=== PATIENT | male | born 1965 | race Caucasian/White ===

== ENCOUNTER 2021-09-21 09:22 | Day surgery (SDC) | payer OTHER ==
[2021-09-20 09:12] VITALS: BMI 28.1
[~2021-09-21 09:22] MED LIST: LACTATED RINGERS 1,000 ML IV SCH
[2021-09-21 09:58] VITALS: RESP 16; TEMP 96.4
[2021-09-21] MEDS ORDERED: MIDAZOLAM 2 MG/2 ML VIAL ONE (11:00)
[2021-09-21] MEDS ORDERED: PROPOFOL 10 MG/ML 20 ML VIAL IV ONE (11:00)
[2021-09-21] MEDS ORDERED: LIDOCAINE 1% INJ 10MG/ML (20 ML MDV) ONE (11:00)
--- NOTE | 2021-09-21 11:57 | P.PCN ---
Date of Procedure: 09/21/21 Procedure(s) Performed: BRIEF HISTORY: Patient is a []-year-old pleasant [] scheduled for an elective colonoscopy as a part of screening for colorectal neoplasia PROCEDURE PERFORMED: Colonoscopy. PREOPERATIVE DIAGNOSIS: Screening for colon cancer.. IV sedation per Anesthesia. PROCEDURE: After informed consent was obtained, the patient, was brought into the endoscopy unit. IV sedation was administered by Anesthesia under continuous monitoring. Digital rectal examination was normal. Initially the Olympus CF-160 flexible video colonoscope was then inserted in the rectum, gradually advanced into the cecum without any difficulty. Careful examination was performed as the scope was gradually being withdrawn. Ileocecal valve and the appendiceal orifice were visualized and appeared normal. Prep was excellent. Mucosa of the cecum, ascending colon, transverse colon, appeared normal. In the descending colon there was a 3.5-4 cm polyp with a thick stalk located at 50 cm from the anal verge there was removed by snare polypectomy in a piecemeal fashion. Following polypectomy was some oozing identified. 3 endoclips were placed and hemostasis was achieved. Tattooing was performed with Funmi ink. In the distal sigmoid colon at 25 cm from the anal verge there was a 3 cm with pedunculated polyp that was removed by snare polypectomy. In the distal rectum there was a 5 mm polyp that was removed by snare polypectomy. Rest of the sigmoid colon, and rectum appeared normal. Retroflexion was performed in the rectum and all internal hemorrhoids were seen. The patient tolerated the procedure well. IMPRESSION: 3.5-4 cm polyp with a thick stalk with the polyp extending to the base of the stalk located in the descending colon at 50 cm from the anal verge, status post piecemeal snare polypectomy followed by Endo Clip placement 3 cm pedunculated distal sigmoid colon polyp at 25 cm from the anal verge status post snare polypectomy 5 mm rectal polyp status post polypectomy Small internal hemorrhoid RECOMMENDATIONS: Findings of this examination were discussed with the patient as well as his family. He was advised to follow with the biopsy results. He'll be seen in office in 1 week to discuss the biopsy results..
[2021-09-21 12:20] VITALS: BP 157/92; PULSE 79
== END 2021-09-21 12:35 | disposition home or self-care (01) ==
LOC: ORWHC2ENDO 09:22
PROVIDERS: ATTEND Internal Medicine Gastroenterology
DX: Z12.11 Encounter for screening for malignant neoplasm of colon (principal); D12.4 Benign neoplasm of descending colon; C20 Malignant neoplasm of rectum; K62.1 Rectal polyp; I10 Essential (primary) hypertension; E78.5 Hyperlipidemia, unspecified; F17.200 Nicotine dependence, unspecified, uncomplicated; E07.9 Disorder of thyroid, unspecified; Z86.73 Personal history of transient ischemic attack (TIA), and cerebral infarction without residual deficits; Z98.890 Other specified postprocedural states; Z87.19 Personal history of other diseases of the digestive system; Z79.890 Hormone replacement therapy; Z79.899 Other long term (current) drug therapy; Z88.5 Allergy status to narcotic agent
CPT/HCPCS: 88305; 45385; 45381; J2250; J2001; J2704; 45382

== ENCOUNTER 2022-01-11 11:06 | Day surgery (SDC) | payer OTHER ==
[2022-01-11 11:54] VITALS: RESP 16; TEMP 97.2
[2022-01-11] MEDS ORDERED: LIDOCAINE 1% INJ 10MG/ML (20 ML MDV) ONE (14:00)
[2022-01-11] MEDS ORDERED: PROPOFOL 10 MG/ML 20 ML VIAL IV ONE (14:00)
--- NOTE | 2022-01-11 14:09 | P.PCN ---
Date of Procedure: 01/11/22 Procedure(s) Performed: BRIEF HISTORY: Patient is a 56-year-old, pleasant, white male scheduled for an upper endoscopy as a part of evaluation of severe epigastric pain for the last few months duration. . His been taking NSAIDs in regular basis. No prior history of peptic ulcer disease. PROCEDURE PERFORMED: Esophagogastroduodenoscopy with biopsy PREOPERATIVE DIAGNOSIS: Chronic epigastric pain of 3 months. IV sedation per anesthesia. PROCEDURE: After informed consent was obtained, the patient was brought into the endoscopy unit. IV sedation was administered by Anesthesia under continuous monitoring. Initially the Olympus GIF-140 video endoscope was inserted into the mouth. Esophagus intubated without any difficulty. It was gradually advanced into the stomach and duodenum and carefully examined. The bulb of the duodenum had a 5 mm duodenal bulbar ulcer with no active bleeding. The second part of the duodenum appeared normal. The scope at this time was withdrawn to the stomach, adequately insufflated with air, and upon careful examination, mucosa of the antrum, had gastritis and biopsies were done from this area. The body, cardia and the fundus appeared normal. The scope was then withdrawn into the esophagus. The GE junction was located at 39 cm from the incisors. The esophagus appeared normal. There were no erosions or ulcerations seen and the patient tolerated the procedure well. IMPRESSION: 1. 5 mm duodenal bulbar ulcer with no active bleeding. 2. Antral gastritis. RECOMMENDATIONS: The findings of this examination were discussed with the patient as well as his family. He was advised to follow with the biopsy results. Will start omeprazole 20 mg twice daily. Avoid NSAIDs. Follow up in office in 3 months
[2022-01-11 14:37] VITALS: BP 158/95; PULSE 69
== END 2022-01-11 14:54 | disposition home or self-care (01) ==
LOC: ORWHC2ENDO 11:06
PROVIDERS: ATTEND Internal Medicine Gastroenterology
DX: K29.60 Other gastritis without bleeding (principal); K26.9 Duodenal ulcer, unspecified as acute or chronic, without hemorrhage or perforation; I10 Essential (primary) hypertension; E78.5 Hyperlipidemia, unspecified; E07.9 Disorder of thyroid, unspecified; Z79.890 Hormone replacement therapy; F12.90 Cannabis use, unspecified, uncomplicated
CPT/HCPCS: 43239; 88305; J2001; J2704